=== PATIENT | male | born 1955 | race Caucasian/White ===

== ENCOUNTER 2024-02-17 00:57 | Emergency (ER) | payer OTHER, MEDICARE, BC | END 2024-02-17 03:05 | disposition home or self-care (01) | LOC: JP.ED 00:57 | DX: R22.1 Localized swelling, mass and lump, neck (principal); E10.9 Type 1 diabetes mellitus without complications; Z88.7 Allergy status to serum and vaccine; Z79.899 Other long term (current) drug therapy | CPT/HCPCS: 99283 ==